=== PATIENT | male | born 1995 | race Caucasian/White ===

== ENCOUNTER 2017-09-09 21:37 | Emergency (ER) | payer OTHER ==
[~2017-09-09] VITALS: Ht 167.6 cm; Wt 59.5 kg
[2017-09-09 21:51] VITALS: Ht 167.6 cm; Wt 59.5 kg
[2017-09-09] MEDS ORDERED: PROM6.25 PO (23:11)
[2017-09-09] MEDS ORDERED: CLOT30CR24 TOP (23:12)
--- NOTE | 2017-09-09 23:26 | ERD ---
ER Documentation Chief Complaint Chief Complaint COUGH X 1 WEEK, FEVER AT TIMES HPI This is a 22-year-old male presents to the ER with a cough for the last 2 days. He states that the cough is dry and constant. He feels warm however has not taken his temperature. He denies any sore throat, ear pain or sick contacts at home. Patient is overly concerned of an STD, he has not been sexually active in a few months, however developed a lesion 2 days ago on his mons pubis. Denies any penile discharge, pain, urinary frequency, dysuria, hematuria. ROS 12 point review of systems was done, all negative except per HPI. Medications Home Meds Active Scripts Clotrimazole* (Clotrimazole* AF) 1% - 30 Gm Cream.gm., 1 APPLIC TOP BID for 7 Days, TUB Prov:JUANA SIMON 09/09/17 Promethazine Hcl* (Promethazine Hcl* Syrup) 6.25 Mg/5 Ml Syrup, 12.5 MG PO Q6H Y for COUGH for 3 Days, ML Prov:JUANA SIMON 09/09/17 Allergies Allergies: Coded Allergies: No Known Drug Allergies (Verified Allergy, Mild, 11/16/09) PMhx/Soc Medical and Surgical Hx: pt denies Medical Hx, pt denies Surgical Hx History of Surgery: No Hx Neurological Disorder: No Hx Respiratory Disorders: No Hx Cardiac Disorders: No Hx Miscellaneous Medical Probl: No Hx Alcohol Use: No Hx Substance Use: No Hx Tobacco Use: No Smoking Status: Never smoker Physical Exam Vitals Vital Signs Date Time Temp Pulse Resp B/P Pulse Ox O2 Delivery O2 Flow Rate FiO2 09/09/17 21:51 98.1 58 20 142/63 98 Physical Exam GENERAL: The patient is well-developed, well-nourished, in no acute distress. NECK: Cervical spine is non tender with no step off. Supple, no nuchal rigidity HEENT: Atraumatic. Pupils equal, round and reactive to light. Extraocular muscles are grossly intact. Conjunctivae pink, no discharge. Bilateral tympanic membranes are clear with no evidence of erythema, effusion or dulling of the light reflex. Tonsilar erythema with no exudates or uvular deviation. Clear rhinorrhea. RESPIRATORY: Clear to auscultation bilaterally. There are no rales, wheezes or rhonchi. HEART: Regular rate and rhythm. No murmurs, clicks, rubs or gallops. : patient has a raised red plaque to the mons pubis. no penile discharge. EXTREMITIES: No clubbing or cyanosis. Full range of motion. Grossly neurovascularly intact. NEUROLOGIC: Alert and oriented. Cranial nerves II through XII are intact. SKIN: There is no rash. The skin is warm and dry. Results 24 hrs Current Medications Medications (Trade) Dose Ordered Sig/Basilio Route PRN Reason Start Time Stop Time Status Last Admin Dose Admin Azithromycin (Zithromax) 1,000 mg ONCE ONCE PO 09/09/17 23:30 09/09/17 23:31 Ceftriaxone Sodium (Rocephin) 250 mg ONCE ONCE IM 09/09/17 23:30 09/09/17 23:31 Lidocaine (Xylocaine 2% (Mdv) 20 ml) 20 ml ONCE ONCE INJ 09/09/17 23:30 09/09/17 23:31 Procedures/MDM Differential diagnosis includes but is not limited to; Viral URI, allergic rhinitis, bronchitis, pertussis,pneumonia. This is likely viral in etiology. Clinical suspicion for pneumonia is low as patient appears well, is not hypoxic or in any respiratory distress. Additionally, patients physical examination is benign. Plan was discussed with patient they understand and agree. Patient needs to follow up with PCP in 1-2 days or return to ER sooner if symptoms worsen. Regards to patient's lesion, this may be fungal in etiology. Patient was treated prophylactically for chlamydia and gonorrhea as he was very worried about an STD. His urine will be sent out for culture. Patient to follow-up with his primary care doctor within 1-2 days to get syphilis and HIV testing. He is to return to ER sooner if symptoms worsen. My medical decision making sure with the patient understands and agrees with plan. Departure Diagnosis: Primary Impression: Upper respiratory infection Condition: Stable Patient Instructions: Preventing Common Respiratory Infections Additional Instructions: Call your primary care doctor TOMORROW for an appointment during the next 1-2 days.See the doctor sooner or return here if your condition worsens before your appointment time. JUANA SIMON Sep 09, 2017 23:26
[2017-09-09] MEDS ORDERED: AZITHROMYCIN 250 MG TAB PO ONE (23:30)
[2017-09-09] MEDS ORDERED: CEFTRIAXONE 250 MG INJ IM ONE (23:30)
[2017-09-09] MEDS ORDERED: LIDOCAINE 2% (MDV) 20 ML INJ INJ ONE (23:30)
== END 2017-09-09 23:45 | disposition home or self-care (01) ==
LOC: FTE 21:37
DX: J06.9 Acute upper respiratory infection, unspecified (principal)
CPT/HCPCS: 87591; 96372; 99284; J0696